=== PATIENT | female | born 1995 | race Caucasian/White ===

== ENCOUNTER 2021-08-09 07:43 | Emergency (ER) | payer OTHER ==
[~2021-08-09] VITALS: Ht 167.6 cm; Wt 90.7 kg
[2021-08-09] MEDS ORDERED: NORFLEX100MG PO (13:18)
[2021-08-09] MEDS ORDERED: KETO10TA2 PO (13:18)
== END 2021-08-09 13:27 | disposition home or self-care (01) ==
LOC: ER 07:43
DX: R51.9 Headache, unspecified (principal); Z03.818 Encounter for observation for suspected exposure to other biological agents ruled out